=== PATIENT | female | born 1970 | race Caucasian/White ===

== ENCOUNTER → 2017-11-05 | Outpatient (CLI) | payer MEDICAID ==
--- NOTE | 2017-11-05 10:31 | RADIOLOGY REPORT (SQ) ---
EXAM DESCRIPTION: U/S ABDOMEN COMPLETE W/DOPPLER COMPLETED DATE/TIME: 11/05/2017 10:02 am REASON FOR STUDY: ABNORMAL LFT'S R94.5 ABNORMAL RESULTS OF LIVER FUNCTION STUDIES COMPARISON: 2015. TECHNIQUE: Dynamic and static grayscale images acquired of the abdomen and recorded on PACS. Soniao nal selected color Doppler and spectral images recorded. LIMITATIONS: None. FINDINGS: PANCREAS: No masses. Visualized pancreatic duct normal caliber. LIVER: Echogenic, coarse parenchyma suggests steatosis. Mildly enlarged at just over 21 cm. LIVER VASCULATURE: Normal directional flow of the main portal vein and hepatic veins. GALLBLADDER: Cholelithiasis. At least 1 large shadowing 2.8 cm stone. No wall thickening or pericho lecystic fluid. ULTRASOUND-DETECTED RODRIGUEZ'S SIGN: Negative. INTRAHEPATIC DUCTS AND COMMON DUCT: CBD and intrahepatic ducts normal caliber. No filling defects. INFERIOR VENA CAVA: Normal flow. AORTA: No aneurysm. RIGHT KIDNEY:Normal size. Normal echogenicity. No solid or suspicious masses. No hydronephrosis. No c alcifications. LEFT KIDNEY: Normal size. Normal echogenicity. No solid or suspicious masses. No hydronephrosis. No calcifications. SPLEEN: Mild splenic prominence, just at 12 cm. PERITONEAL AND PLEURAL SPACES: No ascites or effusions. OTHER: No other significant finding. IMPRESSION: 1. Fatty enlarged liver. Mildly enlarged spleen. 2. Cholelithiasis without ultrasound evidence of acute cholecystitis. TECHNICAL DOCUMENTATION: JOB ID: [id number] [employer]- All Rights Reserved Reading location - IP/workstation name: [email or web address]
== END ==
LOC: RAD 09:06
PROVIDERS: ATTEND Internal Medicine Gastroenterology
DX: R94.5 Abnormal results of liver function studies (principal)
CPT/HCPCS: 76700; 93976

== ENCOUNTER → 2018-12-20 | Outpatient (CLI) | payer MEDICAID | LOC: LAB 17:03 | PROVIDERS: ATTEND Nurse Practitioner Family | DX: L73.9 Follicular disorder, unspecified (principal) | CPT/HCPCS: 87070; 87077; 87186; 87205 ==

== ENCOUNTER 2019-03-19 19:34 | Emergency (ER) | payer SELFPAY ==
[2019-03-19 20:03] VITALS: BP 134/71
--- NOTE | 2019-03-19 20:43 | ER Document Report ---
ED Medical Screen (RME) - General Chief Complaint: Headache Stated Complaint: HEAD AND NECK PAIN Time Seen by Provider: 03/19/19 20:39 Primary Care Provider: MARLENY SANDERSON NP [Primary Care Provider] - Follow up as needed Mode of Arrival: Ambulatory Information source: Patient Notes: 48-year-old female presents to ED for complaint of pain to the back of her neck. She has a large lesion to the posterior right scalp and a small wound to the posterior left scalp. She also has multiple insect bites to both arms and legs. There are no insect bites that I have noticed to the trunk but just on the arms and legs. Patient states she has been to her primary care doctor about a week ago and was told that it was an infected hair follicle. Patient is alert oriented respirations regular nonlabored speaking in full sentences. I have greeted and performed a rapid initial assessment of this patient. A comprehensive ED assessment and evaluation of the patient, analysis of test results and completion of medical decision making process will be conducted by an additional ED providers. TRAVEL OUTSIDE OF THE [place] IN LAST 30 DAYS: No - Related Data Allergies/Adverse Reactions: No Known Allergies Allergy (Unverified 02/06/13 11:57) Home Medications: bp med-not taking regularly. metformin- not taking regularly Past Medical History - Social History Chew tobacco use (# tins/day): No Frequency of alcohol use: None Drug Abuse: None Past Surgical History: Reports: Hx Tubal Ligation - Immunizations Hx Diphtheria, Pertussis, Tetanus Vaccination: Yes Physical Exam - Vital signs Vitals: Temp Pulse Resp BP Pulse Ox 98.2 F 76 14 134/71 H 97 03/19/19 20:00 03/19/19 20:00 03/19/19 20:00 03/19/19 20:00 03/19/19 20:00 Course - Vital Signs Vital signs: Temp Pulse Resp BP Pulse Ox 98.2 F 76 14 134/71 H 97 03/19/19 20:00 03/19/19 20:00 03/19/19 20:00 03/19/19 20:00 03/19/19 20:00 Doctor's Discharge - Discharge Referrals: MARLENY SANDERSON NP [Primary Care Provider] - Follow up as needed
== END 2019-03-19 21:34 | disposition left against medical advice (07) ==
LOC: ER 19:34
DX: M54.2 Cervicalgia (principal); L98.9 Disorder of the skin and subcutaneous tissue, unspecified; S40.862A Insect bite (nonvenomous) of left upper arm, initial encounter; S40.861A Insect bite (nonvenomous) of right upper arm, initial encounter; S80.862A Insect bite (nonvenomous), left lower leg, initial encounter; S80.861A Insect bite (nonvenomous), right lower leg, initial encounter; W57.XXXA Bitten or stung by nonvenomous insect and other nonvenomous arthropods, initial encounter; Z53.20 Procedure and treatment not carried out because of patient's decision for unspecified reasons
CPT/HCPCS: 99281

== ENCOUNTER 2019-03-20 13:40 | Emergency (ER) | payer SELFPAY ==
--- NOTE | 2019-03-20 14:02 | ER Document Report ---
ED Medical Screen (RME) - General Chief Complaint: Abscess Stated Complaint: ABSCESS/BACK OF HEAD Time Seen by Provider: 03/20/19 13:58 Primary Care Provider: MARLENY SANDERSON NP [Primary Care Provider] - Follow up as needed Mode of Arrival: Ambulatory Information source: Patient Notes: 48-year-old female presents to ED for 2 lesions to the back of her head one to the left one to the right on the lower back scalp. She was here last night but stated the wait was so long she did not get seen by another provider. She is alert oriented respirations regular and unlabored. She states the pain goes down her neck and upper head. They have been there for a while but they are getting bigger and more painful. I have greeted and performed a rapid initial assessment of this patient. A comprehensive ED assessment and evaluation of the patient, analysis of test results and completion of medical decision making process will be conducted by an additional ED providers. TRAVEL OUTSIDE OF THE [place] IN LAST 30 DAYS: No - Related Data Allergies/Adverse Reactions: No Known Allergies Allergy (Unverified 02/06/13 11:57) Past Medical History Past Surgical History: Reports: Hx Tubal Ligation - Immunizations Hx Diphtheria, Pertussis, Tetanus Vaccination: Yes Doctor's Discharge - Discharge Referrals: MARLENY SANDERSON NP [Primary Care Provider] - Follow up as needed
--- NOTE | 2019-03-20 17:35 | ER Document Report ---
HPI - HPI Time Seen by Provider: 03/20/19 13:58 Pain Level: 3 Notes: Patient is a 48-year-old female with no significant past medical history who presents complaining of possible abscess to the posterior scalp area that is been present for 3 weeks. Patient states that the one site has been draining a little bit, but just bloody. She has not noticed any purulent discharge. She does have pain associated. Denies drug allergies. Patient states that she was told that it was an infected hair follicle in the past. No history of MRSA. Patient states that she is also had a rash to her hands, forearms, and lower legs bilaterally over the past couple weeks that is pruritic and worse at nighttime. No new exposure to chemicals, detergents, soaps, insect bites. No known exposure to poisonous plants. Denies any headache, fever, neck pain, URI, sore throat, chest pain, palpitations, syncope, cough, shortness of breath, wheeze, dyspnea, abdominal pain, nausea/vomiting/diarrhea, urinary retention, dysuria, hematuria, joint pain. - ROS Systems Reviewed and Negative: Yes All other systems reviewed and negative - REPRODUCTIVE Reproductive: DENIES: : Past Medical History - General Information source: Patient - Social History Smoking Status: Never Smoker Frequency of alcohol use: None Drug Abuse: None Family History: Reviewed & Not Pertinent Patient has suicidal ideation: No Patient has homicidal ideation: No Endocrine Medical History: Reports: Hx Diabetes Mellitus Type 2 Past Surgical History: Reports: Hx Tubal Ligation - Immunizations Hx Diphtheria, Pertussis, Tetanus Vaccination: Yes Vertical Provider Document - CONSTITUTIONAL Agree With Documented VS: Yes Notes: PHYSICAL EXAMINATION: GENERAL: Well-appearing, well-nourished and in no acute distress. HEAD: Atraumatic, normocephalic. EYES: Pupils equal round and reactive to light, extraocular movements intact, sclera anicteric, conjunctiva are normal. ENT: EAC clear b/l. TM's intact b/l without erythema, fluid, or perforation. Nares patent and without discharge. oropharynx clear without exudates. No tonsilar hypertrophy or erythema. Moist mucous membranes. No sinus tenderness. NECK: Normal range of motion, supple without lymphadenopathy LUNGS: Breath sounds clear to auscultation bilaterally and equal. No wheezes rales or rhonchi. HEART: Regular rate and rhythm without murmurs, rubs, gallops. ABDOMEN: Soft, nontender, nondistended abdomen. No guarding, no rebound. No masses appreciated. Normal bowel sounds present. No CVA tenderness bilaterally. Musculoskeletal: FROM to passive/active. Strength 5+/5. Extremities: No cyanosis, clubbing, or edema b/l. Peripheral pulses 2+. Capillary refill less than 3 seconds. NEUROLOGICAL: Cranial nerves grossly intact. Normal speech, normal gait. Normal sensory, motor exams PSYCH: Normal mood, normal affect. SKIN: posterior scalp: there is a 2cm indurated scabbed lesion noted with swelling and tenderness. No fluctuance or streaks. Scant bloody discharge from the smaller 0.5cm open area just to the left of the larger lesion. Arms/Legs: there are multiple scabbed papular lesions to the arms, hands, lower legs b/l w/o tenderness or purulence. - INFECTION CONTROL TRAVEL OUTSIDE OF THE [place] IN LAST 30 DAYS: No Course - Re-evaluation Re-evalutation: 03/20/19 17:32 Patient is an afebrile, well-hydrated, 48-year-old female who presents with a scalp infection and suspected scabies. Vitals are acceptable without significant tachycardia, tachypnea, or hypoxia. PE is otherwise unremarkable. I did use an 11 blade to check the larger area for any purulent material warranting larger incision and drainage. No purulence was expressed from this area. Wound dressing was placed and wound instructions reviewed. Scabies precautions reviewed. Patient aware to monitor very closely as she may warrant a larger incision and drainage in the future should more of an abscess develop. Low suspicion for any necrotizing fasciitis, SJS, SSS, drug reaction, sepsis, meningitis, syphilis, Lyme disease, [place] spotted fever, or other systemic emergent condition at this time. Patient aware that condition can change from initial presentation and she needs to monitor symptoms closely and seek medical attention with any acute changes. I will send her home with a prescription for Keflex, Bactrim, and permethrin. Recheck with your PCM in 2 to 3 days. Consider consult with dermatology. Return to the ED with any other worsening/concerning symptoms as reviewed. Patient is in agreement. - Vital Signs Vital signs: Temp Pulse Resp BP Pulse Ox 98.1 F 83 16 146/76 H 98 03/20/19 14:03 03/20/19 14:03 03/20/19 14:03 03/20/19 14:03 03/20/19 14:03 Procedures - Incision and Drainage Posterior scalp Type: Simple Blade size: 11 I&D procedure: Chlorprep applied Incision Method: Incision made by scalpel Amount/type of drainage: scant bloody, no purulence Discharge - Discharge Clinical Impression: Infection of scalp, Scabies, Rash and nonspecific skin eruption Condition: Stable Disposition: HOME, SELF-CARE Instructions: Scabies ([facility]) Additional Instructions: Keep the skin clean Wash with soap and water Tylenol/ibuprofen if needed Scabies precautions Triple antibiotic ointment daily Take medication as directed Monitor for any worsening symptoms Recheck with your PCM in 2-3 days Consider consult with Dermatology for ongoing/worsening symptoms Return to the ED with any worsening symptoms and/or development of fever, headache, chest pain, palpitations, syncope, shortness of breath, trouble breathing, abdominal pain, n/v/d, abscess, purulent discharge, red streaks, worsening swelling, or other worsening symptoms that are concerning to you. Prescriptions: Sulfamethoxazole/Trimethoprim [Bactrim Ds Tablet] 1 each PO BID #20 tablet Permethrin [Elimite] 60 gm TP ONCE PRN #60 cream.gm. PRN Reason: Cephalexin Monohydrate [Keflex 500 mg Capsule] 500 mg PO TID #30 capsule Forms: Elevated Blood Pressure Referrals: MARLENY SANDERSON NP [Primary Care Provider] - Follow up as needed XIN MONTILLA DO [ACTIVE STAFF] - Follow up as needed
[2019-03-20 17:49] VITALS: BP 148/79
== END 2019-03-20 17:49 | disposition home or self-care (01) ==
LOC: ER 13:40
PROC: 0H90XZZ Drainage of Scalp Skin, External Approach (ICD-10-PCS; principal; 2019-03-20)
DX: B86 Scabies (principal); L08.9 Local infection of the skin and subcutaneous tissue, unspecified; R21 Rash and other nonspecific skin eruption; E11.9 Type 2 diabetes mellitus without complications
CPT/HCPCS: 87070; 87077; 87186; 87205; 99282

== ENCOUNTER → 2019-06-08 | Outpatient (CLI) | payer MEDICAID | LOC: OD 15:28 | PROVIDERS: ATTEND Nurse Practitioner Acute Care | DX: M79.89 Other specified soft tissue disorders (principal) | CPT/HCPCS: 36415; 86430 ==

== ENCOUNTER → 2020-02-24 | Outpatient (CLI) | payer MEDICAID | LOC: OD 16:17 | PROVIDERS: ATTEND Nurse Practitioner Acute Care | DX: M79.89 Other specified soft tissue disorders (principal) | CPT/HCPCS: 36415; 84550 ==

== ENCOUNTER → 2020-05-08 | Outpatient (CLI) | payer MEDICAID ==
--- NOTE | 2020-05-08 17:00 | RADIOLOGY REPORT (SQ) ---
EXAM DESCRIPTION: SHOULDER LEFT 2 OR MORE VIEWS IMAGES COMPLETED DATE/TIME: 05/08/2020 4:19 pm REASON FOR STUDY: (M25.512)PAIN IN LEFT SHOULDER M25.512 PAIN IN LEFT SHOULDER COMPARISON: None. NUMBER OF VIEWS: Three views. TECHNIQUE: Internal rotation, external rotation, and Y view images acquired of the left shoulder. LIMITATIONS: None. FINDINGS: MINERALIZATION: Normal. BONES: No acute fracture. No worrisome bone lesions. JOINTS: No dislocation. VISUALIZED LUNGS AND RIBS: No pneumothorax. No rib fracture. SOFT TISSUES: No radiopaque foreign body. OTHER: No other significant finding. IMPRESSION: 1. No acute osseous findings. TECHNICAL DOCUMENTATION: JOB ID: [id number] [employer]- All Rights Reserved Reading location - IP/workstation name: [email or web address]
== END ==
LOC: RAD 16:05
PROVIDERS: ATTEND Nurse Practitioner Family
DX: M25.512 Pain in left shoulder (principal)

== ENCOUNTER 2020-06-23 18:06 | Emergency (ER) | payer MEDICAID ==
--- NOTE | 2020-06-23 18:36 | ER Document Report ---
ED Medical Screen (RME) - General Chief Complaint: Weakness Stated Complaint: WEAKNESS, BODY ACHES, FATIGUE, COUGH Time Seen by Provider: 06/23/20 18:21 Primary Care Provider: JUNO CARR NP [Primary Care Provider] - Follow up as needed Notes: Patient is a 50 y/o female who presents to the ED with a cough, congestion, and generalized body aches. She tested positive for COVID 19 on 06/05/2020. States she still does not feel any better. Exam: O2 saturation 98% on room air. I have greeted and performed a rapid initial assessment of this patient. A comprehensive ED assessment and evaluation of the patient, analysis of test results and completion of medical decision making process will be conducted by an additional ED providers. TRAVEL OUTSIDE OF THE [place] IN LAST 30 DAYS: No - Related Data Allergies/Adverse Reactions: No Known Allergies Allergy (Unverified 02/06/13 11:57) Past Medical History Endocrine Medical History: Reports: Hx Diabetes Mellitus Type 2 Past Surgical History: Reports: Hx Tubal Ligation - Immunizations Hx Diphtheria, Pertussis, Tetanus Vaccination: Yes Physical Exam - Vital signs Vitals: Temp Pulse Resp BP Pulse Ox 98.6 F 81 20 145/76 H 98 06/23/20 18:15 06/23/20 18:15 06/23/20 18:15 06/23/20 18:15 06/23/20 18:15 Course - Vital Signs Vital signs: Temp Pulse Resp BP Pulse Ox 98.6 F 81 20 145/76 H 98 06/23/20 18:15 06/23/20 18:15 06/23/20 18:15 06/23/20 18:15 06/23/20 18:15 Doctor's Discharge - Discharge Referrals: JUNO CARR NP [Primary Care Provider] - Follow up as needed
[2020-06-23 19:05] LABS: ABSOLUTE EOSINOPHILS # (AUTO) 0.3 10^3/uL (0.0-0.6); ABSOLUTE LYMPHOCYTES (AUTO) 2.7 10^3/uL (0.5-4.7); ABSOLUTE MONOCYTES (AUTO) 0.4 10^3/uL (0.1-1.4); ABSOLUTE NEUT (AUTO) 3.5 10^3/uL (1.7-8.2); BASOPHILS % (AUTO) 0.6 % (0-2); EOSINOPHILS % (AUTO) 4.6 % (0-6); HEMATOCRIT 38.1 % (36.0-47.0); HEMOGLOBIN 13.4 g/dL (12.0-15.5); LYMPHOCYTES % (AUTO) 38.4 % (13-45); MEAN CORPUSCULAR HEMOGLOBIN 29.4 pg (27.0-33.4); MEAN CORPUSCULAR HGB CONC 35.2 g/dL (32.0-36.0); MEAN CORPUSCULAR VOLUME 84 fl (80-97); MONOCYTES % (AUTO) 6.3 % (3-13); PLATELET COUNT 205 10^3/uL (150-450); RED BLOOD COUNT 4.56 10^6/uL (3.72-5.28); RED CELL DISTRIBUTION WIDTH 14.5 % (11.5-14.0); SEGMENTED NEUTROPHILS % (AUTO) 50.1 % (42-78); TOTAL CELLS COUNTED % (AUTO) 100 %; WHITE BLOOD COUNT 6.9 10^3/uL (4.0-10.5)
[2020-06-23 19:26] LABS: ALBUMIN 4.1 g/dL (3.5-5.0); ALKALINE PHOSPHATASE 108 U/L (38-126); ANION GAP 10 (5-19); ASPARTATE AMINO TRANSFERASE 46 U/L (14-36); BILIRUBIN,DIRECT 0.4 mg/dL (0.0-0.4); BLOOD UREA NITROGEN 12 mg/dL (7-20); CALCIUM 9.5 mg/dL (8.4-10.2); CARBON DIOXIDE 26 mmol/L (22-30); CHLORIDE 99 mmol/L (98-107); GLUCOSE 347 mg/dL (75-110); POTASSIUM 4.4 mmol/L (3.6-5.0); TOTAL PROTEIN 6.9 g/dL (6.3-8.2)
--- NOTE | 2020-06-23 20:25 | ER Document Report ---
ED Respiratory Problem - General Chief Complaint: Cough Stated Complaint: WEAKNESS, BODY ACHES, FATIGUE, COUGH Time Seen by Provider: 06/23/20 18:21 Primary Care Provider: JUNO CARR NP [Primary Care Provider] - Follow up as needed Mode of Arrival: Ambulatory Information source: Patient Notes: 50-year-old female presented to ED for complaint of cough congestion shortness of breath generalized body aches. She states she tested positive for COVID-19 on 06/05/2020. She states she still feels some of the symptoms her symptoms are much better. States she no longer has the fever but she still has the body aches and cough. O2 sats are 98% lungs are clear to auscultation. She did do a rapid PCR test today which was positive for COVID-19 again. CBC is white count is 6.9 with segs of 15 lymphs of 38.4 fluency test is negative RF SV tachycardia test is negative for chest x-ray and then discuss disposition with patient. Constitutional: Negative for fever. Fevers have ended HENT: Nose congestion no sore throat Eyes: Negative for visual changes. Cardiovascular: Negative for chest pain. Respiratory: Complains of intermittent dry cough Gastrointestinal: Negative for abdominal pain, vomiting or diarrhea. Genitourinary: Negative for dysuria. Musculoskeletal: Negative for back pain. Skin: Negative for rash. Neurological: Negative for headaches, weakness or numbness. 10 point ROS negative except as marked above and in HPI. VITAL SIGNS: Within normal limits. GENERAL: No acute distress, non-toxic appearance. HEAD: Normal with no signs of head trauma. EYES: PERRLA, EOMI, conjunctiva normal, no discharge. EARS: Hearing grossly intact. NOSE: Normal. THROAT: Oropharynx is normal. NECK: Normal range of motion, no tenderness, supple, no lymphadenopathy, No adenopathy, no JVD. CHEST: States she continues to have cough and congestion lung sounds clear bilaterally. No wheezes, rales, or rhonchi. CARDIAC: Regular rate and rhythm. S1 and S2, without murmurs, gallops, or rubs. VASCULAR: No Edema. Peripheral pulses normal and equal in all extremities. ABDOMEN: Normal and soft with no tenderness, no masses or pulsatile masses. GASTROINTESTINAL: Bowel sounds normal GENITOURINARY: Normal, No tenderness LYMPATHTIC: No lymphadenopathy noted. MUSCULOSKELETAL: Good range of motion of all major joints. Extremities without clubbing, cyanosis or edema. NEUROLOGICAL: Alert and oriented x 3. No focal sensory or strength deficits. Speech normal. Follows commands appropriately. PSYCHIATRIC: Normal Affect, judgement and mood. SKIN: Normal appearance with no rashes or lesions. TRAVEL OUTSIDE OF THE [place] IN LAST 30 DAYS: No - HPI Patient complains to provider of: Cough Onset: Other - Get in of June Duration: Better - Some symptoms to continue Quality of pain: Achy Severity: Moderate Pain Level: 3 Cough: Nonproductive Sputum amount: None Associated symptoms: Bloody cough, PND, Runny nose, Sinus pain/pressure, Other - Body aches. denies: Fever Similar symptoms previously: Yes Recently seen / treated by doctor: No - Related Data Allergies/Adverse Reactions: No Known Allergies Allergy (Unverified 02/06/13 11:57) Home Medications: takes medication for BP, diabetes, COPD/asthma Past Medical History - General Information source: Patient - Social History Smoking Status: Former Smoker Cigarette use (# per day): No Frequency of alcohol use: Occasional Drug Abuse: None Lives with: Family Family History: Reviewed & Not Pertinent Patient has suicidal ideation: No Patient has homicidal ideation: No - Past Medical History Cardiac Medical History: Reports: Hx Hypertension Pulmonary Medical History: Reports: Hx Asthma, Hx COPD EENT Medical History: Reports: None Neurological Medical History: Reports: None Endocrine Medical History: Reports: Hx Diabetes Mellitus Type 2 Renal/ Medical History: Reports: None Malignancy Medical History: Reports: None GI Medical History: Reports: None Musculoskeletal Medical History: Reports None Skin Medical History: Reports None Psychiatric Medical History: Reports: None Traumatic Medical History: Reports: None Infectious Medical History: Reports: None Past Surgical History: Reports: Hx Tubal Ligation - Immunizations Hx Diphtheria, Pertussis, Tetanus Vaccination: Yes Physical Exam - Vital signs Vitals: Temp Pulse Resp BP Pulse Ox 98.6 F 81 20 145/76 H 98 06/23/20 18:15 06/23/20 18:15 06/23/20 18:15 06/23/20 18:15 06/23/20 18:15 Course - Re-evaluation Re-evalutation: 06/24/20 03:47 Labs and x-ray discussed with patient written report of labs and x-ray given to patient. Patient was given instructions to quarantine self for her positive Co vid. She states she was positive for Covid on 05 June but her Covid test today also was positive. Chest x-ray was negative. Patient is actually feeling much better than when she came in. Patient presents with upper respiratory symptoms worrisome for possible Covid 19. Patient does not have emergency worring symptoms such as difficulty breathing, shortness of breath, chest pain, pressure, confusion or cyanosis. Patient appears suitable for discharge as they are not of an advanced age, do not have any chronic medical conditions such as diabetes, CAD, immune deficiency, chronic lung disease or chronic kidney disease. Patient's vital signs are stable and patient is nontoxic in appearanc e. Good return precautions have been discussed with patient, patient verbalized understanding and is agreeable with discharge plan of care at this time. - Vital Signs Vital signs: Temp Pulse Resp BP Pulse Ox 97.9 F 77 18 138/79 H 97 06/23/20 22:21 06/23/20 22:21 06/23/20 22:21 06/23/20 22:21 06/23/20 22:08 - Laboratory Results Result Diagrams: 06/23/20 18:30 06/23/20 18:30 Laboratory Results Interpreted: 06/23/20 06/23/20 06/23/20 18:30 18:30 19:06 RDW 14.5 H Sodium 134.7 L Creatinine 0.51 L Glucose 347 H AST 46 H ALT 70 H SARS-CoV-2 Rap RNA(RT-PCR) POSITIVE H Critical Laboratory Results Reviewed: No Critical Results - Radiology Results Critical Radiology Results Reviewed: No Critical Results Discharge - Discharge Clinical Impression: Viral illness, COVID-19 Condition: Stable Disposition: HOME, SELF-CARE Instructions: COVID-19 Guidance for Persons Under Investigation Additional Instructions: Your test was positive for COVID-19. Viral Syndrome The physician has diagnosed a viral infection. Viruses not only cause "colds," but can cause many different symptoms including generalized aching, fever, headache, cough, diarrhea, nausea, vomiting, and fatigue. The treatment, for the most part, is simply relief of symptoms. This means that antibiotics are usually not given. Rest, fluids, pain medications and, occasionally, medication for the specific symptoms that are most bothersome will be prescribed. Use good handwashing to avoid passing the virus to others. Shared toys should be cleaned with disinfectant. Clean the toilets, sinks, and counter surfaces in bathrooms. Launder clothing in hot water. Contact the physician if you develop any new or unusual symptoms such as severe headache, stiff neck, high fever, chest pain, productive cough, or shortness of breath. You should be rechecked if you don't see marked improvement within seven to 10 days. Acetaminophen Acetaminophen may be taken for pain relief or fever control. It's much safer than aspirin, offering a wider range of "safe" dosages. It is safe during . Some brand names are Tylenol, Panadol, Datril, Anacin 3, Tempra, and Liquiprin. Acetaminophen can be repeated every four hours. The following are maximum recommended dosages: WEIGHT Dose Drops Elixir Chewable(80mg) (LBS.) drprs=droppers tsp=teaspoon 6 40 mg .4 ml (1/2) 6-11 80 mg .8 ml (full) 1/2 tsp 1 tab 12-16 120 mg 1 1/2 drprs 3/4 tsp 1 1/2 tabs 17-23 160 mg 2 drprs 1 tsp 2 tabs 24-30 240 mg 3 drprs 1 1/2 tsp 3 tabs 30-35 320 mg 2 tsp 4 tabs 36-41 360 mg 2 1/4 tsp 4 1/2 tabs 42-47 400 mg 2 1/2 tsp 5 tabs 48-53 480 mg 3 tsp 6 tabs 54-59 520 mg 3 1/4 tsp 6 1/2 tabs 60-64 560 mg 3 1/2 tsp 7 tabs 65-70 600 mg 3 3/4 tsp 7 1/2 tabs 71-76 640 mg 4 tsp 8 tabs 77-82 720 mg 4 1/2 tsp 9 tabs 83-88 800 mg 5 tsp 10 tabs >89 pounds or adults 650 mg to 900 mg Acetaminophen can be repeated every four hours. Maximum daily dose not to exceed 4000 mg. These maximum recommended dosages are slightly higher than the dosages wri tten on the product container, but these dosages are very safe and well below the toxic dosage for acetaminophen. Patient was provided with discharge information including: As a person under investigation for Covid 19, the [facility] and [facility], division of public health advises you to adhere to the following guidance until your test results are reported to you. If your test result is positive, you will receive additional information from your pr ovider and your local health department at that time. Remain at home until you are cleared by the health provider or public health authorities. Keep a log of visitors to your home, notify any visitors to your home of your isolation status. If you plan to move to a new address or leave the county, notify the local health department in your County. Call your doctor or seek care if you have an urgent medical need. Before seeking medical care, call ahead to get instructions from the provider before arriving at the medical office clinic or hospital. Notify them that you are being tested for the virus that causes Covid 19 so that arrangements can be made, as necessary, to prevent transmission to others in the healthcare setting. Next, notify the local health department in your county. If a medical emergency arises and you need to call 911, inform the first responders that you are being tested for the virus that causes Covid 19. Next, notify the local health department in your county. Forms: Elevated Blood Pressure Referrals: JUNO CARR NP [Primary Care Provider] - Follow up as needed
--- NOTE | 2020-06-23 20:35 | RADIOLOGY REPORT (SQ) ---
EXAM DESCRIPTION: XR CHEST 1 VIEW COMPLETED DATE/TME: 06/23/2020 19:57 CLINICAL HISTORY: 50 years, Female, shortness of breath COMPARISON: Chest x-ray 10/24/2015. TECHNIQUE: Upright portable chest x-ray FINDINGS: Cardiomediastinal silhouette is not enlarged. No acute lung pleural bone abnormalities. IMPRESSION: No acute findings in chest.
[2020-06-23 22:21] VITALS: BP 138/79
== END 2020-06-23 22:20 | disposition home or self-care (01) ==
LOC: ER 18:06
DX: U07.1 COVID-19 (principal); I10 Essential (primary) hypertension; Z79.899 Other long term (current) drug therapy; Z87.891 Personal history of nicotine dependence
CPT/HCPCS: 99284; 36415; 87040; 83605; 85025; 0241U; 87077; 80053; 87150 ×26; 71045; C9803; 87186